=== PATIENT | female | born 1995 | race Two or more races ===

== ENCOUNTER 2018-02-26 11:10 | Emergency (ER) | payer MEDICAID, SELFPAY ==
[~2018-02-26] VITALS: Ht 162.6 cm; Wt 90.9 kg
[2018-02-26] MEDS ORDERED: DICYCLOMINE 10 MG/ML, 2ML IM ONE (12:30)
[2018-02-26] MEDS ORDERED: ONDANSETRON ODT 4 MG PO ONE (12:30)
[2018-02-26] MEDS ORDERED: ONDANSETRON ODT 4 MG ONE (12:36)
[2018-02-26] MEDS ORDERED: DICYCLOMINE 10 MG/ML, 2ML ONE (12:36)
[2018-02-26 13:01] LABS: MICROSCOPIC INDICATED
[2018-02-26 13:15] LABS: BASOPHILS # (AUTO) 0.05 x10^3/uL (0-0.1); BASOPHILS % (AUTO) 1 % (0-1); EOSINOPHILS # (AUTO) 0.31 x10^3/uL (0-0.4); EOSINOPHILS % (AUTO) 4 % (1-7); LYMPHOCYTES # (AUTO) 2.46 x10^3/uL (1-3.4); LYMPHOCYTES % (AUTO) 32 % (22-44); MD NO; MEAN CORPUSCULAR HEMOGLOBIN 31.5 pg (27.0-34.8); MEAN CORPUSCULAR HGB CONC 34.2 g/dL (32.4-35.8); MEAN CORPUSCULAR VOLUME 91.9 fL (80-100); MEAN PLATELET VOLUME 8.1 fL (7.4-10.4); MONOCYTES # (AUTO) 0.65 x10^3/uL (0.2-0.8); MONOCYTES % (AUTO) 8 % (2-9); NEUTROPHILS # (AUTO) 4.24 x10^3/uL (1.8-6.8); NEUTROPHILS % (AUTO) 55 % (42-75); PLATELET COUNT 286 x10^3/uL (130-400); RED CELL DISTRIBUTION WIDTH 13.3 % (9.6-15.2)
[2018-02-26 13:21] VITALS: BP 125/79
[2018-02-26 13:21] LABS: CULTURE INDICATED? NO
[2018-02-26 13:28] LABS: ALANINE AMINOTRANSFERASE 30 U/L (12-78); ALBUMIN 3.7 g/dL (3.4-5.0); ANION GAP 8 mmol/L (5-15); CALCIUM 8.4 mg/dL (8.5-10.1); CHLORIDE 107 mmol/L (98-107); CREATININE 0.59 mg/dL (0.55-1.02)
[2018-02-26 13:33] LABS: ALKALINE PHOSPHATASE 111 U/L (45-117); BILIRUBIN,TOTAL 0.2 mg/dL (0.2-1.0); TOTAL PROTEIN 7.9 g/dL (6.4-8.2)
== END 2018-02-26 14:03 | disposition home or self-care (01) ==
LOC: ED 12:33
DX: K52.9 Noninfective gastroenteritis and colitis, unspecified (principal)
CPT/HCPCS: 36415; 80053; 81001; 83690; 84703; 85025; 96372; 99283; J0500; Q0162